=== PATIENT | male | born 1965 | race Caucasian/White ===

== ENCOUNTER 2017-06-19 23:13 | Emergency (ER) | payer BC ==
--- NOTE | 2017-06-19 23:28 | CPEKG ---
Heart Rate: 73 RR Interval: 822 P-R Interval: 144 QRSD Interval: 88 QT Interval: 384 QTC Interval: 424 P Gunpowder: 58 QRS Gunpowder: 82 T Wave Gunpowder: 23 EKG Severity - OTHERWISE NORMAL ECG - EKG Impression: SINUS RHYTHM EKG Impression: ATRIAL PREMATURE COMPLEX Electronically Signed By: Lexis Lyons 20-Jun-2017 05:54:29
[2017-06-19 23:44] LABS: PLATELET COUNT 277 10^3/uL (150-400)
--- NOTE | 2017-06-20 00:38 | EDPHY ---
H & P Stated Complaint: 2144: PALPITATIONS, SOB, MID STERNAL CP. NOW: SLIGHT SOB Time Seen by Provider: 06/19/17 23:21 HPI/ROS: HPI The patient presents with increasing palpitations over the last 2 weeks. These are intermittent any notices a mostly at night while he is lying in bed. He does note that they are exacerbated by drinking alcohol. He did have 1 beer earlier tonight which he drank over several hours. He was lying in bed tonight and felt palpitations and then at about 11:00 p.m. Pollock a spasm in his chest that lasted for 1-2 seconds which was associated with palpitations. This concerned him, so he came into the emergency room. He says he was diagnosed with PACs about 20 years ago though they have been intermittent. Currently, he denies any symptoms, does not feel short of breath, nauseated, has not had any vomiting, dizziness. He has not seen a food and beverage service manager in many years.. REVIEW OF SYSTEMS Constitutional: No fever, no chills. Eyes: No discharge. ENT: No sore throat. Cardiovascular: See HPI Respiratory: No cough, no shortness of breath. Gastrointestinal: No abdominal pain, no vomiting. Genitourinary: No hematuria. Musculoskeletal: No back pain. Skin: No rashes. Neurological: No headache. PMHx: History of asthma, takes medications daily, history of PACs, primary care doctor is Dr. Tez Multani Hx: Occasional alcohol use PHYSICAL General Appearance: Alert, no distress Eyes: Pupils equal and round no pallor or injection ENT, Mouth: Mucous membranes moist Respiratory: There are no retractions, lungs are clear to auscultation Cardiovascular: Regular rate and rhythm Gastrointestinal: Abdomen is soft and non-tender, no masses, bowel sounds normal Neurological: A&O, moves all extremities Skin: Warm and dry, no rashes Musculoskeletal: Neck is supple non tender Extremities: symmetrical, full range of motion Psychiatric: Patient is oriented X 3, there is no agitation Source: Patient Exam Limitations: No limitations - Personal History Current Tetanus/Diphtheria Vaccine: Yes - Medical/Surgical History Hx Asthma: Yes Hx Chronic Respiratory Disease: No Hx Diabetes: No Hx Cardiac Disease: No Hx Renal Disease: No Hx Cirrhosis: No Hx Alcoholism: No Hx HIV/AIDS: No Hx Splenectomy or Spleen Trauma: No Other PMH: PAC'S, ASTHMA, APPY - Social History Smoking Status: Never smoked Constitutional: Initial Vital Signs Temperature (C) 36.5 C 06/19/17 23:16 Heart Rate 83 06/19/17 23:16 Respiratory Rate 20 06/19/17 23:16 Blood Pressure 150/108 H 06/19/17 23:16 O2 Sat (%) 98 06/19/17 23:16 O2 Delivery Mode Room Air Allergies/Adverse Reactions: erythromycin base [Erythromycin Base] Allergy (Verified 06/19/17 23:19) Shellfish *RETIRED-12/02/11 [Shellfish] Allergy (Verified 06/19/17 23:19) Home Medications: Medication Instructions Recorded Albuterol Sulfate [Albuterol HFA 2 puffs IH Q4-6PRN PRN 05/05/10 17g] Fluticasone/Salmeter 100/50Mcg 1 inh IH DAILY 05/05/10 [Advair 100/50] LORazepam 1 MG PREPACK#4 1 mg PO PRN PRN 05/05/10 [Lorazepam] Medical Decision Making - Diagnostics EKG Interpretation: EKG: Complete interpretation has been separately recorded in the [facility] archive. Summary impression: Occasional PACs Imaging Results: Chest x-ray one view shows no cardiomegaly, no infiltrate, interpreted by me, radiology interpretation is pending. Imaging: I viewed and interpreted images myself Differential Diagnosis: This is a 51-year-old male with history of PACs who presents with increasing palpitations over the last 2 weeks, becoming more prominent tonight associated with an episode of spasm in his mid chest, now resolved. Currently, he is feeling well, he has normal vital signs, he does not have any chest pain. Differential diagnosis includes PACs, PVCs, less likely atrial fibrillation. In the emergency department, EKG was obtained which did demonstrate PACs. The patient was placed on the monitor technician for about 2 hr and had PACs only. Labs were checked including electrolytes and 4 unremarkable. Troponin was normal. Chest x-ray did not reveal cardiomegaly. Because of the patient's increasing symptoms, I will refer him to Cardiology. He has not seen a food and beverage service manager in many years. He is in agreement with this plan and is happy to go home. - Data Points Laboratory Results: Laboratory Results 06/19/17 23:36 06/19/17 23:36 06/19/17 06/19/17 23:36 23:36 WBC 7.38 10^3/uL 10^3/uL (3.80-9.50) RBC 4.98 10^6/uL 10^6/uL (4.40-6.38) Hgb 16.6 g/dL g/dL (13.7-17.5) Hct 46.9 % % (40.0-51.0) MCV 94.2 fL fL (81.5-99.8) MCH 33.3 pg pg (27.9-34.1) MCHC 35.4 g/dL g/dL (32.4-36.7) RDW 12.5 % % (11.5-15.2) Plt Count 277 10^3/uL 10^3/uL (150-400) MPV 9.1 fL fL (8.7-11.7) Neut % (Auto) 50.4 % % (39.3-74.2) Lymph % (Auto) 40.2 % % (15.0-45.0) Donley % (Auto) 6.4 % % (4.5-13.0) Eos % (Auto) 1.9 % % (0.6-7.6) Baso % (Auto) 0.8 % % (0.3-1.7) Nucleat RBC Rel Count 0.0 % % (0.0-0.2) Absolute Neuts (auto) 3.72 10^3/uL 10^3/uL (1.70-6.50) Absolute Lymphs (auto) 2.97 10^3/uL 10^3/uL (1.00-3.00) Absolute Monos (auto) 0.47 10^3/uL 10^3/uL (0.30-0.80) Absolute Eos (auto) 0.14 10^3/uL 10^3/uL (0.03-0.40) Absolute Basos (auto) 0.06 10^3/uL 10^3/uL (0.02-0.10) Absolute Nucleated RBC 0.00 10^3/uL 10^3/uL (0-0.01) Immature Gran % 0.3 % % (0.0-1.1) Immature Gran # 0.02 10^3/uL 10^3/uL (0.00-0.10) Sodium 140 mEq/L mEq/L (135-145) Potassium 4.3 mEq/L mEq/L (3.5-5.2) Chloride 103 mEq/L mEq/L (97-110) Carbon Dioxide 22 mEq/l mEq/l (22-31) Anion Gap 15 mEq/L mEq/L (8-16) BUN 20 mg/dL mg/dL (7-23) Creatinine 0.9 mg/dL mg/dL (0.7-1.3) Estimated GFR > 60 Glucose 88 mg/dL mg/dL (70-100) Calcium 9.4 mg/dL mg/dL (8.5-10.4) Phosphorus 3.4 mg/dL mg/dL (2.5-4.5) Magnesium 2.0 mg/dL mg/dL (1.6-2.3) Troponin I < 0.012 ng/mL ng/mL (0.000-0.034) Departure - Departure Disposition: Home, Routine, Self-Care Clinical Impression: Palpitations, PAC (premature atrial contraction) Condition: Good Instructions: Premature Atrial Contractions (ED) Additional Instructions: I recommend that you follow up with the food and beverage service manager in the next few weeks. You should return to the emergency department if your worse in any way. Please make sure to drink plenty of fluids. You should try to avoid alcohol whenever possible. Referrals: Rosalino Reagan MD [Primary Care Provider] - As per Instructions Dillon Montes MD [Medical Doctor] - As per Instructions
[2017-06-20 00:50] VITALS: BP 128/87
== END 2017-06-20 00:50 | disposition home or self-care (01) ==
DX: I49.1 Atrial premature depolarization (principal); J45.909 Unspecified asthma, uncomplicated

== ENCOUNTER → 2018-01-02 | Outpatient (CLI) | payer BC | LOC: BMCIMAGING 14:39 | PROVIDERS: ATTEND Internal Medicine | DX: J98.4 Other disorders of lung (principal) ==